=== PATIENT | female | born 1950 | race Caucasian/White ===

== ENCOUNTER 2017-05-27 21:17 | Inpatient (IN) | payer OTHER, MEDICARE ==
--- NOTE | ~2017-05-27 | HEMODYNAMI ---
PATIENT:ASHA SALEH MEDICAL RECORD: [id number] : 54 LOCATION:[facility].2123 ADMISSION DATE: 05/27/17 Generatedon:05/28/201715:08 Patient name: ASHA SALEH Patient #: [id number] SSN: : 1950 Date of study: 05/28/2017 Page: Of Hemodynamic Procedure Report Patient Data Patient Demographics Procedure consent was obtained First Name: ASHA Gender: Female Last Name: THERESE : 1950 Patient #: [id number] Age: 66 year(s) Race: Unknown Additional ID: [id number] Contact details [address]: [address] [place] [address] State: [place] City: [place] Zip code: [address] Admission Admission Data Admission Date: 05/27/2017 Admission Time: 23:00 Room #: 2123 Procedure Procedure Types Cath Procedure Diagnostic Procedure [facility] w/Coronaries Miscellaneous Procedures Moderate Sedation up to 15 minutes Procedure Description Procedure Date Procedure Date: 05/28/2017 Procedure Start Time: 14:49 Procedure End Time: 15:07 Procedure Staff Name Function Philip Perera MD Performing Physician Jojo Story RT Scrub Gumaro Schaffer RN Nurse Peyton Ram RT Monitor Procedure Data Cath Procedure Fluoroscopy Diagnostic fluoroscopy Total fluoroscopy Time: 3.5 time: 3.5 min min Diagnostic fluoroscopy Total fluoroscopy dose: 314 dose: 314 mGy mGy Contrast Material Contrast Material Type Amount (ml) Isovue 300 85 Entry Location Entry Primary Successful Side Size Upsize Upsize Entry Closure Cooney ccessful Closure Location (Fr) 1 (Fr) 2 (Fr) Remarks Device Remarks Radial Right 6 Fr Mechanical TR Band artery Short Compression Estimated blood loss: 10 ml Diagnostic catheters Device Type Used For End Catheter Placement Diagnostic Terumo 5Fr Procedure [place] 110cm catheter Diagnostic Infinity 5Fr Ventriculography Pigtail catheter Procedure Complications No complications Procedure Medications Medication Administration Route Dosage Oxygen NC 2 l/min Lidocaine 2% added to field 20 Heparin Flush Bag added to field 2 bags (1000units/500ml NS) 0.9% NaCl I.V. 100 ml/hr Versed I.V. 1 mg Fentanyl I.V. 50 mcg Radial Cocktail I.A. 1 syringe (Verapomil 2mg/Nitro 400mcg/Heparin 1500units) Versed I.V. 1 mg Fentanyl I.V. 50 mcg Hemodynamics Rest Heart Rate: 87 (bpm) Pressure Samples Time Site Value (mmHg) Purpose Heart Use Rate(bpm) 14:52 LV 128/-10,7 Snapshot 87 14:58 LV 117/-6,11 Snapshot 82 14:59 AO 97/53(72) Pullback 83 14:59 LV 113/-5,12 Pullback 83 Gradients Valve Time Site 1 Site 2 Mean SEP/DFP Peak To Heart Use (mmHg) (sec/min) Peak Rate (mmHg) (bpm) Aortic 14:59 LV AO 7 17 16 83 113/-5,12 97/53(72) Calculations Valve P-P Mean Valve Index Valve Source Name Gradient Area Flow (cm2) Aortic 16 7 16 7 Snapshots Pre Cath Intra NCS Post Cath Vital Signs Time Heart Resp SPO2 NIBP (mmHg) Rhythm Pain Sedation Rate (ipm) (%) Status Level (bpm) 14:36:35 85 18 100 125/71(100) NSR 0 (11) 10(A) , No pain 14:40:43 84 17 100 135/72(106) NSR 0 (11) 10(A) , No pain 14:44:55 81 16 100 125/68(91) NSR 0 (11) 10(A) , No pain 14:49:03 77 15 99 120/67(89) NSR 0 (11) 9(A) , No pain 14:54:06 85 16 99 113/66(81) NSR 0 (11) 9(A) , No pain 14:58:12 82 16 100 110/60(86) NSR 0 (11) 9(A) , No pain 15:02:16 80 16 100 109/66(81) NSR 0 (11) 10(A) , No pain 15:06:19 77 10 100 115/65(88) NSR 0 (11) 10(A) , No pain Medications Time Medication Route Dose Verified Delivered Reason Notes Effectiveness by by 14:42:36 Oxygen NC 2 l/min Philip Buffie used for Trever Schaffer RN procedure 14:42:44 Lidocaine 2% added 20ml Philip Buffie used for to vial Trever Schaffer RN procedure field 14:42:49 Heparin Flush added 2 bags Philip Buffie used for Bag to Trever Schaffer RN procedure (1000units/500ml field NS) 14:42:58 0.9% NaCl I.V. 100 Philip Buffie Per ml/hr Trever Schaffer RN physician 14:45:04 Versed I.V. 1 mg Philip Buffie for sedation Trever Schaffer RN 14:45:09 Fentanyl I.V. 50 mcg Philip Buffie for sedation Trever Schaffer RN 14:51:19 Radial Cocktail I.A. 1 Philip Philip for (Verapomil syringe Trever Perera MD vasodilation 2mg/Nitro 400mcg/Heparin 1500units) 14:51:25 Versed I.V. 1 mg Philip Buffie for sedation Trevre Schaffer RN 14:51:29 Fentanyl I.V. 50 mcg Philip Buffie for sedation Trever Schaffer RN Procedure Log Time Note 14:14:48 Diagnostic Cath Status : Elective 14:15:06 Jojo Story RT(R) sent for patient. Start room use. 14:35:13 Time tracking: Regular hours 14:35:17 Plan of Care:Hemodynamics will remain stable., Cardiac rhythm will remain stable., Comfort level will be maintained., Respiratory function will remain adequate., Patient/ family verbilizes understanding of procedure., Procedure tolerated without complication., Recovers from procedure without complications.. 14:35:22 Patient received from Med II to [facility] Alert and oriented. Tansferred to table in Supine position. 14:35:23 Warm blankets applied, and armando hugger turned on for patient comfort. 14:35:23 Correct patient and procedure confirmed by team. 14:35:24 Signed procedure consent form obtained from patient. 14:35:25 ECG and BP/O2 sat monitors applied to patient. 14:35:26 Vital chart was started 14:35:28 Baseline sample Acquired. 14:35:34 Rhythm: sinus rhythm 14:35:35 Full Disclosure recording started 14:35:41 H&P Date Dictated: 05/28/2017 New H&P dictated by physician.. 14:35:43 Pre-procedure instructions explained to patient. 14:35:43 Pre-op teaching completed and patient verbalized understanding. 14:35:44 Family in waiting room. 14:35:45 Patient NPO since Midnight. 14:35:52 Is the patient allergic to Iodine/contrast media? No. 14:35:54 Was the patient premedicated? No 14:35:54 Is patient on blood thinner?No 14:35:55 Patient diabetic? No. 14:35:59 Previous problem with sedation/anesthesia? No ? 14:36:00 Snore? No 14:36:01 Sleep apnea? No 14:36:02 Deviated septum? No 14:36:04 Opens mouth fully? Yes 14:36:05 Sticks out tongue? Yes 14:36:08 Airway obstruction? No ? 14:36:11 Dentures? No ? 14:36:14 Pre procedure: right dorsailis pedis pulse 1+ Palpable, but thready & weak; easily obliterated 14:36:17 Pre procedure: left dorsailis pedis pulse 1+ Palpable, but thready & weak; easily obliterated 14:36:19 Patient pain scale 0/10 ?. 14:36:33 IV patent on arrival in left hand with 0.9% NaCl at [facility]. 14:36:39 Lab results completed and on chart. 14:36:43 Right Radial & Right Groin area was prepped with chlora-prep and draped in sterile fashion 14:36:44 Alarms reviewed by R. N. 14:36:44 Sharps counted by scrub and verified by R.N. 14:42:36 Oxygen 2 l/min NC was administered by Gumaro Schaffer RN; used for procedure; 14:42:44 Lidocaine 2% 20ml vial added to field was administered by Gumaro Schaffer RN; used for procedure; 14:42:49 Heparin Flush Bag (1000units/500ml NS) 2 bags added to field was administered by Gumaro Schaffer RN; used for procedure; 14:42:57 Physician arrived 14:42:58 0.9% NaCl 100 ml/hr I.V. was administered by Gumaro Schaffer RN; Per physician; :58 --------ALL STOP TIME OUT------ 14:42:59 Final Timeout: patient, procedure, and site verified with staff and physician. All members of the team are in agreement. 14:43:01 Right Radial & Right Groin site verified by team. 14:43:05 Physical assessment completed. ASA score P 2 - A patient with mild systemic disease as per Philip Perera MD. 14:43:09 Sedation plan: IV Moderate Sedation Versed, Fentanyl 14:43:15 Use device set Radial Dx 14:43:35 Acist Syringe opened to sterile field. 14:43:35 Medline Cath Pack opened to sterile field. 14:43:36 Bag Decanter opened to sterile field. 14:43:36 Terumo 6Fr Slender Glidesheath opened to sterile field. 14:43:37 St Koko 260cm J .035 wire opened to sterile field. 14:43:37 Acist Hand Control opened to sterile field. 14:43:38 Acist Manifold opened to sterile field. 14:43:38 Tegaderm 4 x 4 opened to sterile field. 14:43:38 MBrace Wrist Support opened to sterile field. 14:45:04 Versed 1 mg I.V. was administered by Gumaro Schaffer RN; for sedation; 14:45:09 Fentanyl 50 mcg I.V. was administered by Gumaro Schaffer RN; for sedation; 14:49:16 Procedure started. 14:49:25 Local anesthetic to right radial artery with Lidocaine 2% by Philip Perera MD.INITIAL ACCESS ONLY 14:49:28 Zero performed for pressure channel P1 14:49:34 Zero performed for pressure channel P1 14:49:44 Zero performed for pressure channel P1 14:50:03 A 6 Fr Short sheath was inserted into the Right Radial artery 14:50:58 A Diagnostic Terumo 5Fr [place] 110cm catheter was advanced over the wire and used for Procedure. 14:51:19 Radial Cocktail (Verapomil 2mg/Nitro 400mcg/Heparin 1500units) 1 syringe I.A. was administered by Philip Perera MD; for vasodilation; 14:51:25 Versed 1 mg I.V. was administered by Gumaro Schaffer RN; for sedation; 14:51:29 Fentanyl 50 mcg I.V. was administered by Gumaro Schaffer RN; for sedation; 14:52:47 LCA angiography performed. 14:55:51 RCA angiography performed. 14:56:40 Catheter removed. 14:57:15 A Diagnostic Infinity 5Fr Pigtail catheter was advanced over the wire and used for Ventriculography. 15:01:47 Catheter removed. 15:02:09 Terumo TR Band Standard opened to sterile field. 15:04:26 Sheath removed intact; hemostasis achieved with Mechanical Compression to the Right Radial artery. 15:04:32 Procedure ended.(Physican Out) 15:04:47 Fluoroscopy time 03.50 minutes. 15:04:53 Fluoroscopy dose: 314 mGy 15:04:53 Flurop Dose total: 314 15:04:59 Contrast amount:Isovue 300 85ml. 15:05:04 Sharps counted by scrub and verified by R.N. 15:05:08 TR band inflated with 13cc of air. 15:05:10 Insertion/operative site no bleeding no hematoma. 15:05:16 Post Procedure Pulses reassessed and unchanged 15:05:20 Post-procedure physical assessment completed. ASA score P 2 - A patient with mild systemic disease as per Philip Preera MD. 15:05:24 Post procedure rhythm: unchanged. 15:05:30 Estimated blood loss: 10 ml 15:05:35 Post procedure instruction explained to patient.Patient verbalizes understanding. 15:05:49 Procedure type changed to Cath procedure, Diagnostic procedure, LHC, LHC w/Coronaries, Miscellaneous Procedures, Moderate Sedation up to 15 minutes 15:05:50 Procedure and supply charges have been captured, reviewed, submitted and are correct. 15:06:18 Procedure Complication : No complications 15:06:21 Vital chart was stopped 15:06:43 See physician's report for complete and final results. 15:07:38 Report given to [facility]. 15:07:45 Patient transfered to [facility] with Stretcher. 15:07:49 Procedure ended. 15:07:49 Full Disclosure recording stopped 15:07:53 End room use (Document Last) Device Usage Item Name Manufacture Quantity Catalog Hospital Part Current Minimal Lot# / Number Charge Number Stock Stock Serial# Code Wolf Acist 1 20107 [id number] 037085 [id number] 20 Syringe Medical [employer] Inc Medline Cardinal 1 [id number] 942277 08584 622432 5 Cath Pack Health Bag Microtek 1 2002S 388233 86118 437021 5 [employer] Terumo 6Fr Terumo 1 [id number] 281433 543015 251305 [address] St Koko 1 289228 002071 751614 518215 30 260cm J .035 wire Acist Hand Acist 1 55090 702383 443117 350322 5 Control Medical Systems Inc Acist Acist 1 85229 009162 465186 552748 5 Manifold Medical Systems Inc Tegaderm 4 3M 1 1626W 075311 170779 450448 5 x 4 MBrace Advanced 1 140-0250-00 020008 15927 857460 5 Wrist Vascular Support Dynamics Diagnostic Terumo 1 59-3402 284960 519087 067392 5 Terumo 5Fr [place] 110cm catheter Diagnostic Cardinal 1 [id number] 044532 703828 184885 5 [employer] Health 5Fr Pigtail catheter Terumo TR Terumo 1 [id number] 633685 344411 770533 40 Band Standard Signature Audit [place] Stage Time Signature Unsigned Intra-Procedure 05/28/2017 Peyton Ram 3:08:49 PM RT(R) Signatures Monitor : Peyton Ram Signature : RT Date : Time : [place] [id number] [facility] [place] [address]
[2017-05-27 21:40] LABS: EOSINOPHILS 6.3 % (0-7); HEMATOCRIT 37.9 % (36.0-48.0); IMMATURE GRANULOCYTES 0.3 % (0-5); MCH 31.5 pg (26.0-34.0); MCHC 34.3 g/dL (31.0-37.0); MCV 91.8 fL (80.0-100.0); MEAN PLATELET VOLUME 9.1 fL (7.4-10.4); MONOCYTES 7.6 % (2-11); NEUTROPHILS 40.8 % (40-80); PLATELET COUNT 224 10x3/uL (130-400); RBC 4.13 10x6/uL (4.00-5.40); RDW 12.6 % (11.5-14.5); WBC 7.9 10x3/uL (4.8-10.8)
[2017-05-27 21:57] LABS: ALBUMIN 3.9 g/dL (3.4-5.0); ALKALINE PHOSPHATASE 47 U/L (46-116); ALT (SGPT) 28 U/L (10-68); CALC OSMOLALITY 282 mosm/kg (275-300); CALCIUM 8.6 mg/dL (8.5-10.1); CARBON DIOXIDE 27.2 mmol/L (21.0-32.0); CHLORIDE - SERUM 106 mmol/L (98-107); CREATININE - SERUM 0.9 mg/dL (0.6-1.3); GLUCOSE 118 mg/dL (74-106); POTASSIUM - SERUM 4.2 mmol/L (3.5-5.1); PROTEIN - SERUM 6.7 g/dL (6.4-8.2); SODIUM 140 mmol/L (136-145); UREA NITROGEN 21 mg/dL (7-18); eGFR NON AFRICAN AMERICAN 67 mL/min (90-120)
[2017-05-27 22:10] LABS: CHOL - HDL RATIO 2.9 ratio (2.3-4.1); CHOLESTEROL, TOTAL 196 mg/dL (0-200); CREATINE KINASE 84 UL (21-215); HDL CHOLESTEROL 67 mg/dL (32-96); LDL CHOLESTEROL 116 mg/dL (0-100); LDL-HDL RATIO 1.7 ratio (1.5-3.5); MAGNESIUM - SERUM 2.1 mg/dL (1.8-2.4); PRO BNP 72 pg/mL (0-125); TRIGLYCERIDE 66 mg/dL (30-200)
[2017-05-28] VITALS (7 sets, daily range): BP systolic 105–124; BP diastolic 60–68; BMI 21.6
--- NOTE | 2017-05-28 00:30 | NUR ---
PT ARRIVES VIA WC ACCOMPANIED BY ER NURSE AND PT'S SPOUSE. PLACED ON TELEMETRY UPON ARRIVAL, NSR 80. VSS, AFEBRILE. RESP EVEN AND UNLABORED. SATS 100% ON ROOM AIR. UNIT ROUTINES AND PROTOCOLS DISCUSSED WITH PT AND SPOUSE, UNDERSTANDING VERBALIZED. ADMISSION ASSESSMENT AND HISTORY COMPLETED. MEDICATIONS RECONCILED. CALL LIGHT IN PLACE. WILL MONITOR.
[2017-05-28] MEDS ORDERED: XALATAN 0.0052.5 ML EACH EYE (01:23)
[2017-05-28] MEDS ORDERED: MULTI-DAY VITAM1 TAB PO (01:24)
--- NOTE | 2017-05-28 02:04 | NUR ---
PT RESTING WELL WITHOUT FURTHER C/O PAIN. CALL LIGHT REMAINS IN REACH. SPOUSE AT THE BEDSIDE. WILL CONT TO MONITOR.
[2017-05-28 03:33] LABS: TROPONIN-I 1.181 ng/mL (0.000-0.060)
--- NOTE | 2017-05-28 03:36 | NUR ---
PT'S TROPI RESULTS ELEVATED. 1.181 - CALL TO DR REYNA TO NOTIFY OF RESULTS. NO NEW ORDERS RECEIVED. WILL CONT TO MONITOR.
[2017-05-28 07:36] LABS: BASOPHILS 0.7 % (0-2); EOSINOPHILS 2.5 % (0-7); HEMOGLOBIN 12.1 g/dL (12-16); IMMATURE GRANULOCYTES 0.1 % (0-5); LYMPHOCYTES 23.6 % (15-50); MCH 31.8 pg (26.0-34.0); MCHC 34.6 g/dL (31.0-37.0); MCV 92.1 fL (80.0-100.0); MEAN PLATELET VOLUME 9.6 fL (7.4-10.4); NEUTROPHILS 66.1 % (40-80); PLATELET COUNT 245 10x3/uL (130-400); RDW 12.7 % (11.5-14.5); WBC 8.6 10x3/uL (4.8-10.8)
[2017-05-28 07:41] LABS: CALC OSMOLALITY 285 mosm/kg (275-300); CALCIUM 7.9 mg/dL (8.5-10.1); CARBON DIOXIDE 24.7 mmol/L (21.0-32.0); CHLORIDE - SERUM 109 mmol/L (98-107); CREATININE - SERUM 0.8 mg/dL (0.6-1.3); GLUCOSE 104 mg/dL (74-106); POTASSIUM - SERUM 4.1 mmol/L (3.5-5.1); SODIUM 142 mmol/L (136-145); UREA NITROGEN 20 mg/dL (7-18); eGFR NON AFRICAN AMERICAN 76 mL/min (90-120)
--- NOTE | 2017-05-28 07:49 | NUR ---
RESTS IN BED WITH CALL LIGHT IN REACH. IV PATENT. EMILY NEEDS AT THIS TIME. WILL MONITOR.
--- NOTE | 2017-05-28 08:14 | NUR ---
ASSESSMENT DONE. DENIES NEEDS.
[2017-05-28 09:23] LABS: CKMB 2.7 U/L (0.0-3.6); CREATINE KINASE 80 UL (21-215)
[2017-05-28 09:30] LABS: TROPONIN-I 0.738 ng/mL (0.000-0.060)
--- NOTE | 2017-05-28 14:26 | NUR ---
TO ROBOTIC WELDER PER BED
--- NOTE | 2017-05-28 15:22 | NUR ---
RETURN FROM SOUND SYSTEM INSTALLER PER BED. TR-BAND TO RT WRIST
[2017-05-28 16:14] LABS: MCH 31.8 pg (26.0-34.0); MCHC 34.2 g/dL (31.0-37.0); MCV 92.9 fL (80.0-100.0); MEAN PLATELET VOLUME 8.9 fL (7.4-10.4); RDW 12.7 % (11.5-14.5); WBC 7.1 10x3/uL (4.8-10.8)
[2017-05-28 16:15] LABS: HEMATOCRIT 26.3 % (36.0-48.0); RBC 2.83 10x6/uL (4.00-5.40)
[2017-05-28 16:26] LABS: INR 1.4 (0.85-1.17); PROTIME 17.1 SECONDS (11.6-15.0)
[2017-05-28 16:27] LABS: APTT 54.6 SECONDS (22.8-39.4)
--- NOTE | 2017-05-28 17:28 | NUR ---
WITHOUT CHANGES OR DISTRESS NOTED AT THIS TIME. DENIES NEEDS.
--- NOTE | 2017-05-28 19:40 | NUR ---
PT RESTING IN BED. ALERT/ORIENTED. TEARFUL. AT BEDSIDE. STILL HAS RIGHT WRIST TR BAND IN PLACE. REMOVED ADDITIONAL 3CC AIR AT THIS TIME. STARTED HEPARIN DRIP TO RIGHT HAND WITH 4000UNIT BOLUS AND HEPARIN DRIP AT 10ML/HR. NEXT PTT IN 6 HOURS. SEE SHIFT ASSESSMENT. CPOC.
--- NOTE | 2017-05-28 23:30 | NUR ---
ATTEMPTED TO REMOVE TR BAND FROM RIGHT WRIST AFTER ALL AIR HAD BEEN REMOVED AND BAND HAD BEEN IN PLACE FOR 1 HOUR WITH NO EVIDENCED BLEEDING. UPON REMOVAL OF TR BAND, PT'S CATHETER INSERTION SITE BEGAN TO SHOOT BLOOD. IMMEDIATE PRESSURE APPLIED AND TR BAND REAPPPLIED WITH 6 CC'S OF AIR PRESSURE THAT SUCCESSFULLY STOPPED THE BLEEDING. CLEAN UP/CARE PROVIDED. PT IS VERY NERVOUS AND FRIGHTENED BY THIS ENTIRE SCENARIO OF EVENTS AND THIS EVENT ONLY MADE HER MORE NERVOUS. STAYED AT BEDSIDE TO CALM PT AND ALSO BEING VERY BENEFICIAL IS CALMING HER. PHONE CALL TO DR BLANCO, KRAFT MILL OPERATOR FOR DR REYNA, REPORTED ATTEMPT TO UNSUCCESSFULLY REMOVE TR BAND AND THE IMMEDIATE BLEEDING. ORDERS TO STOP HEPARIN DRIP AND HAVE AN ACT DRAWN.
[2017-05-29] VITALS: BP 129/73
--- NOTE | 2017-05-29 00:39 | NUR ---
REPAGED AND SPOKE WITH DR BLANCO THAT LAB DOES NOT DO IN HOUSE ACT LEVELS. DR BLANCO STATES TO JUST KEEP HEPARIN DRIP OFF UNTIL THE TR BAND CAN BE SUCCESSFULLY REMOVED. SPOKE WITH PT AND SPOUSE AND ABOUT CHANGE IN PLAN OF CARE. WILL CLOSELY SUPERVISE HER TR BAND AND AFTER IT IS REMOVED, THEN WILL START THE HEPARIN PROTOCOL.
--- NOTE | 2017-05-29 01:30 | NUR ---
CHECKED TR BAND SITE. REDUCED AIR BY 2CC. WILL MONITOR. NO ACTIVE BLEEDING NOTED.
--- NOTE | 2017-05-29 03:00 | NUR ---
CHECKED TR BAND SITE. REMOVED ADDITIONAL 2 ML AIR. NO ACTIVE BLEEDING. CONTINUE TO MONITOR.
--- NOTE | 2017-05-29 03:58 | NUR ---
REMOVED REMAINING 2ML/AIR FROM TR BAND. TR BAND LEFT IN PLACE AND WILL MONITOR FOR ANY SIGNS OF BLEEDING. PT HAS BEEN DOZING INTERMITENTLY AND HER LEVEL OF APPRENSION/ANXIETY HAS LESSENED. CONTINUE TO MONITOR.
[2017-05-29 04:10] VITALS: BP 119/59
[2017-05-29 04:34] LABS: APTT 47.1 SECONDS (22.8-39.4); PROTIME 13.8 SECONDS (11.6-15.0)
[2017-05-29 04:36] LABS: INR 1.07 (0.85-1.17)
[2017-05-29 08:00] VITALS: BP 125/63
[2017-05-29 08:50] LABS: BASOPHILS 0.4 % (0-2); EOSINOPHILS 4.3 % (0-7); IMMATURE GRANULOCYTES 0.2 % (0-5); LYMPHOCYTES 30.2 % (15-50); MCH 31.8 pg (26.0-34.0); MCV 93.6 fL (80.0-100.0); MEAN PLATELET VOLUME 9.8 fL (7.4-10.4); MONOCYTES 9.3 % (2-11); NEUTROPHILS 55.6 % (40-80)
[2017-05-29 08:52] LABS: HEMOGLOBIN 11.9 g/dL (12-16); PLATELET COUNT 231 10x3/uL (130-400); RBC 3.74 10x6/uL (4.00-5.40)
--- NOTE | 2017-05-29 08:54 | NUR ---
ASSESSMENT DONE. DENIES NEEDS.
[2017-05-29 11:21] VITALS: BP 118/62
--- NOTE | 2017-05-29 14:21 | NUR ---
SPOKE WITH PATIENT REGARDING FLU SHOT FOR DISCHARGE. PATIENT STATES THAT SHE WANTS TO WAIT UNTIL SHE GOES [place] FOR THE SHOT.
--- NOTE | 2017-05-29 15:01 | NUR ---
Patient Name: ASHA SALEH Admission Status: ER Accout number: [id number] Admission Date: 05-28-2017 : 1950 Admission Diagnosis: Attending: ROBINSON REYNA Current LOS: 1 Anticipated DC Date: 05-29-2017 Planned Disposition: Home Primary Insurance: [employer] PPO Discharge Planning Comments: * Is the patient Alert and Oriented? Yes 0 * How many steps to enter\exit or inside your home? 1-O / 14-I 0 * PCP DR. JACK GALVEZ, [place], [place]. 0 * Pharmacy [facility] [place], [place]. 0 * Preadmission Environment Home with Family 0 * ADLs Independent 0 * Equipment None 0 * Other Equipment NO MEDICAL EQUIPMENT PROVIDER PREFERENCE 0 * List name and contact numbers for known caregivers / representatives who currently or will assist patient after discharge: BERNADETTE SALEHARGENIS, 0 * Community resources currently utilized None 0 * Please name any agencies selected above. NONE 0 * Additional services required to return to the preadmission environment? No 0 * Can the patient safely return to the preadmission environment? Yes 0 * Has this patient been hospitalized within the prior 30 days at any hospital? No 0 CM SPOKE TO BEDSIDE NURSE WHO INFORMED CM THAT PT IS BEING DISCHARGED HOME FOR CARDIOLOGY FOLLOW UP THERE. CM MET WITH PT IN ROOM TO DISCUSS DISCHARGE PLANNING AND NEEDS. PT REPORTS LIVING AT HOME INDEPENDENTLY WITH HER SPOUSE. PT HAS NO MEDICAL EQUIPMENT AND NO OUTSIDE SERVICES ASSISTING IN THE HOME. CM DISCUSSED AVAILABILITY OF HOME HEALTH, REHAB SERVICES AND MEDICAL EQUIPMENT. PT DENIES DISCHARGE NEEDS, REPORTS HER SPOUSE IS PACKING THE CAMPER AND THEY ARE DRIVING HOME TO [place] WHERE PT WILL SEE HER DOCTOR THERE FOR CARIOLOGY FOLLOW UP. SHE AND SPOUSE WERE ON VACATION HERE AND DO NOT WANT TO HAVE SURGERY HERE. SPOUSE WILL BE HERE SHORTLY TO PICK HER UP FOR DISCHARGE HOME. INFORMATION ASSURANCE ENGINEER NURSE NOTIFIED. Animal Hospital Clerk: Brannon Bingham
--- NOTE | 2017-05-29 15:23 | NUR ---
DC GIVEN TO PT AND
--- NOTE | 2017-05-29 15:24 | NUR ---
DC HOME PER PERSONAL CAR
== END 2017-05-29 15:24 | disposition home or self-care (01) | DRG 282 ==
LOC: D.ER 21:17 → D.M2 23:00 → OBSVTIME 23:00 → D.M2 05-28 18:46
PROVIDERS: Emergency Medicine; Internal Medicine Cardiovascular Disease; ADMIT Internal Medicine Cardiovascular Disease
PROC: B2151ZZ Fluoroscopy of Left Heart using Low Osmolar Contrast (ICD-10-PCS; 2017-05-28)
PROC: 4A023N7 Measurement of Cardiac Sampling and Pressure, Left Heart, Percutaneous Approach (ICD-10-PCS; 2017-05-28)
PROC: B2111ZZ Fluoroscopy of Multiple Coronary Arteries using Low Osmolar Contrast (ICD-10-PCS; principal; 2017-05-28 07:30)
DX: I21.4 Non-ST elevation (NSTEMI) myocardial infarction (principal); I25.110 Atherosclerotic heart disease of native coronary artery with unstable angina pectoris; H40.9 Unspecified glaucoma